=== PATIENT | male | born 1975 | race Caucasian/White ===

== ENCOUNTER 2019-03-18 21:39 | Emergency (ER) | payer MEDICAID ==
[~2019-03-18] VITALS: Ht 170.2 cm; Wt 78.3 kg
[~2019-03-18 21:39] MED LIST: NAPR-56 PO; SULF1TAB49 PO
[2019-03-18 22:06] VITALS: BP 172/124
[2019-03-18] MEDS ORDERED: sulfamethoxazole/trimethoprim DS (800/160mg) tablet PO ONE (23:20)
[2019-03-18] MEDS ORDERED: cephalexin 250mg capsule PO ONE (23:20)
[2019-03-18] MEDS ORDERED: CEPH-572 PO (23:23)
[2019-03-18] MEDS ORDERED: SULF1TAB49 PO (23:23)
== END 2019-03-18 23:35 | disposition home or self-care (01) ==
LOC: ER 21:40
DX: S51.801A Unspecified open wound of right forearm, initial encounter (principal); L02.413 Cutaneous abscess of right upper limb; F15.90 Other stimulant use, unspecified, uncomplicated; F17.200 Nicotine dependence, unspecified, uncomplicated; Z60.2 Problems related to living alone; Z59.0 Homelessness; Z79.899 Other long term (current) drug therapy; V00.131A Fall from skateboard, initial encounter; Y93.51 Activity, roller skating (inline) and skateboarding; Y92.89 Other specified places as the place of occurrence of the external cause; Y99.8 Other external cause status
CPT/HCPCS: 99283